=== PATIENT | female | born 1980 | race Two or more races ===

== ENCOUNTER 2020-05-15 03:46 | Emergency (ER) | payer OTHER ==
[~2020-05-15] VITALS: Ht 193 cm; Wt 93.0 kg
[~2020-05-15 03:46] MED LIST: CIPRO500 MG PO; TAMOXIFEN CITRA20 MG
[2020-05-15] MEDS ORDERED: TENORMIN25 MG PO (04:06)
[2020-05-15] MEDS ORDERED: KETO10TA2 PO (07:37)
== END 2020-05-15 07:45 | disposition home or self-care (01) ==
LOC: ER 03:46
DX: S86.811A Strain of other muscle(s) and tendon(s) at lower leg level, right leg, initial encounter (principal); S70.01XA Contusion of right hip, initial encounter; M79.661 Pain in right lower leg; W01.198A Fall on same level from slipping, tripping and stumbling with subsequent striking against other object, initial encounter; Y93.89 Activity, other specified; Y92.89 Other specified places as the place of occurrence of the external cause; Y99.8 Other external cause status

== ENCOUNTER 2020-08-30 14:24 | Emergency (ER) | payer OTHER ==
[~2020-08-30] VITALS: Ht 162.6 cm; Wt 90.7 kg
[~2020-08-30 14:24] MED LIST changes: +KETO10TA2 PO; +TENORMIN25 MG PO
[2020-08-30] MEDS ORDERED: PROTONIX40 MG PO (14:35)
== END 2020-08-30 19:27 | disposition home or self-care (01) ==
LOC: ER 14:24
DX: N20.0 Calculus of kidney (principal)

== ENCOUNTER 2025-01-29 00:34 | Emergency (ER) | payer OTHER ==
[~2025-01-29] VITALS: Ht 162.6 cm; Wt 90.7 kg
[~2025-01-29 00:34] MED LIST changes: +PROTONIX40 MG PO
[2025-01-29 02:46] LABS: BASO % 1.1 % (0.1-1.2); EOS # 0.09 (0.04-0.54); EOS % 1.7 % (0.7-7.0); HEMATOCRIT 40.2 % (34.1-44.9); HEMOGLOBIN 13.1 g/dL (11.2-15.7); LYMPH # 1.86 (1.18-3.74); LYMPH % 34.2 % (19.3-53.1); MEAN CORPUSCULAR HEMOGLOBIN 29.7 pg (25.6-32.2); MONO # 0.58 (0.24-0.82); MONO % 10.7 % (4.7-12.5); NEUT # 2.84 (1.56-6.13); NEUT % 52.1 % (34.0-71.1); PLATELET COUNT 325 K/uL (163-369); RED BLOOD COUNT 4.41 M/uL (3.93-5.22); RED CELL DISTRIBUTION WIDTH 13.1 % (11.6-14.4)
[2025-01-29 03:25] LABS: COVID-19 AG NEGATIVE (NEGATIVE); INFLUENZA A AG NEGATIVE (NEGATIVE); INFLUENZA B AG NEGATIVE (NEGATIVE)
== END 2025-01-29 06:38 | disposition home or self-care (01) ==
LOC: ER 00:34 → EMR PED 01:30
DX: J06.9 Acute upper respiratory infection, unspecified (principal); Z20.822 Contact with and (suspected) exposure to COVID-19; Z88.0 Allergy status to penicillin; Z88.2 Allergy status to sulfonamides